=== PATIENT | female | born 1950 | race Asian ===

== ENCOUNTER 2020-02-12 00:02 | Inpatient (IN) | payer OTHER ==
[~2020-02-12] VITALS: Ht 154.9 cm; Wt 68.7 kg
[2020-02-12] VITALS (11 sets, daily range): BP systolic 80–113; BP diastolic 50–74
[2020-02-12] MEDS ORDERED: SODIUM CHLORIDE FLUSH 10ML SYR IVF ONE (00:30)
[2020-02-12] MEDS ORDERED: SODIUM CHLORIDE 0.9% 1,000ML IV ONE (00:30)
--- NOTE | 2020-02-12 00:39 | NUR ---
URINE SENT TO LAB
[2020-02-12 00:56] LABS: MICROSCOPIC AUTO
[2020-02-12] MEDS ORDERED: SODIUM CHLORIDE 0.9% 1,000ML IVBOLUS ONE (01:30)
[2020-02-12] MEDS ORDERED: CEFTRIAXONE PMX 1GM/50ML 50 ML IV ONE (01:30)
--- NOTE | 2020-02-12 01:36 | NUR ---
PT IS HERE FOR LEFT FLANK PAIN AND VOMITING SINCE YESTERDAY. HR ELEVATED. OTHER VSS. PIV PLACED AND FLUIDS RUNNING. LAB AT BEDSIDE. CALL LIGHT IN REACH
[2020-02-12 01:49] LABS: BASOPHILS # (AUTO) 0.01 x10^3/uL (0-0.1); BASOPHILS % (AUTO) 0 % (0-1); EOSINOPHILS # (AUTO) 0.05 x10^3/uL (0-0.4); EOSINOPHILS % (AUTO) 1 % (1-7); LYMPHOCYTES # (AUTO) 0.64 x10^3/uL (1-3.4); LYMPHOCYTES % (AUTO) 8 % (22-44); MD NO; MEAN CORPUSCULAR VOLUME 90.9 fL (80-100); MEAN PLATELET VOLUME 8.4 fL (7.4-10.4); MONOCYTES # (AUTO) 0.02 x10^3/uL (0.2-0.8); MONOCYTES % (AUTO) 0 % (2-9); NEUTROPHILS # (AUTO) 7.29 x10^3/uL (1.8-6.8); NEUTROPHILS % (AUTO) 91 % (42-75); PLATELET COUNT 117 x10^3/uL (130-400); RED BLOOD COUNT 4.65 x10^6/uL (3.82-5.3); RED CELL DISTRIBUTION WIDTH 13.1 % (9.6-15.2)
[2020-02-12] MEDS ORDERED: CEFTRIAXONE PMX 1GM/50ML 50 ML ONE (01:55)
[2020-02-12 02:02] LABS: ALANINE AMINOTRANSFERASE 48 U/L (12-78); ALBUMIN 3.1 g/dL (3.4-5.0); ANION GAP 10 mmol/L (5-15); CALCIUM 8.1 mg/dL (8.5-10.1); CHLORIDE 114 mmol/L (98-107); CREATININE 2.64 mg/dL (0.55-1.02)
[2020-02-12 02:07] LABS: ALKALINE PHOSPHATASE 110 U/L (45-117); BILIRUBIN,TOTAL 1.1 mg/dL (0.2-1.0); TOTAL PROTEIN 6.7 g/dL (6.4-8.2)
[2020-02-12 02:11] LABS: TROPONIN I 0.147 ng/mL (0.000-0.045)
--- NOTE | 2020-02-12 02:15 | NUR ---
ABX RUNNING AND 2ND LITER OF FLUIDS WELL. PT HAS ELEVATED TROP. NOTIFIED.
--- NOTE | 2020-02-12 02:26 | NUR ---
2 L FLUIDS FINISHED. PT TO BE ADMITTED. VSS. HR STILL ELEVATED.
[2020-02-12] MEDS ORDERED: SODIUM CHLORIDE 0.9% 1,000 ML IV ONE (02:37)
[2020-02-12] MEDS ORDERED: ONDANSETRON 2MG/ML, 2ML IVPush PRN ×3 (03:00→12:00)
[2020-02-12] MEDS ORDERED: MORPHINE SULFATE 4 MG/ML, 1ML IVPush PRN (03:00)
--- NOTE | 2020-02-12 03:09 | NUR ---
PT AMBULATED TO BATHROOM WITH A STEAD GAIT. PT BACK IN ROOM IN BED WITH NO OTE NEEDS. CALL LIGHT IN REACH
[2020-02-12] MEDS ORDERED: ATEN50TA41 PO (04:02)
[2020-02-12] MEDS ORDERED: ATOR20TA86 PO (04:02)
[2020-02-12] MEDS ORDERED: ONDANSETRON ODT 4 MG PO PRN (05:30)
[2020-02-12] MEDS ORDERED: morphine SULFATE 10 MG/ML, 1ML IVPush PRN (05:30)
[2020-02-12] MEDS ORDERED: NITROGLYCERIN 0.4 MG BOTTLE (25 TABS) SL PRN (05:30)
[2020-02-12] MEDS ORDERED: POLYETHYLENE GLYCOL 17 GM PACKET PO PRN (05:30)
[2020-02-12] MEDS ORDERED: LACTATED RINGERS 1,000 ML IV SCH (05:30)
[2020-02-12] MEDS ORDERED: PROMETHAZINE 25 MG/ML, 1ML IM PRN (05:30)
[2020-02-12] MEDS ORDERED: OXYcodone IR 5MG TABLET PO PRN (05:30)
[2020-02-12] MEDS: ACETAMINOPHEN 325 MG TABLET PO SCH ×3 (05:53→16:50)
[2020-02-12] MEDS ORDERED: POTASSIUM CHLORIDE 20 MEQ TAB.ER.PRT PO ONE (06:00)
[2020-02-12 06:20] LABS: TROPONIN I 0.143 ng/mL (0.000-0.045)
[2020-02-12] MEDS ORDERED: ATENOLOL 50 MG TABLET PO SCH (06:30)
[2020-02-12] MEDS ORDERED: LOSA25TA12 PO (06:31)
[2020-02-12] MEDS ORDERED: LACTATED RINGERS 500 ML IVBOLUS ONE ×2 (07:00→10:00)
[2020-02-12] MEDS: SENNA/DOCUSATE TABLET PO SCH (08:17)
[2020-02-12] MEDS ORDERED: LOSARTAN 25MG TABLET PO SCH (09:00)
[2020-02-12] MEDS ORDERED: FENTANYL PF 100 MCG/2ML ONE (11:30)
[2020-02-12] MEDS ORDERED: PHENYLEPHRINE 10 MG/ML ONE (11:32)
[2020-02-12 11:39] LABS: TROPONIN I 0.177 ng/mL (0.000-0.045)
[2020-02-12] MEDS ORDERED: MEPERIDINE/PF 25MG/0.5ML IVPush PRN (12:00)
[2020-02-12] MEDS ORDERED: OXYcodone 5 MG/5 ML ORAL.SOL UDC PO PRN (12:00)
[2020-02-12] MEDS ORDERED: FENTANYL PF 100 MCG/2ML IV PRN (12:00)
[2020-02-12] MEDS ORDERED: CEFAZOLIN 1,000 MG ONE (12:06)
[2020-02-12] MEDS ORDERED: ONDANSETRON 2MG/ML, 2ML ONE (12:06)
[2020-02-12] MEDS ORDERED: PROPOFOL 10 MG/ML, 20ML ONE (12:06)
[2020-02-12] MEDS ORDERED: DEXAMETHASONE 4 MG/ML, 1ML ONE (12:06)
[2020-02-12] MEDS ORDERED: OMNIPAQUE 350 MG/ML, 50 ML BOTTLE ONE (12:16)
[2020-02-12] MEDS ORDERED: CEFEPIME 1 GM in DEXTROSE 5% 100 ML IV SCH (14:00)
[2020-02-12] MEDS: LACTATED RINGERS 1,000 ML IV SCH (16:51)
[2020-02-12 18:42] LABS: TROPONIN I 0.184 ng/mL (0.000-0.045)
[2020-02-12] MEDS: ATORVASTATIN 20 MG TABLET PO SCH (20:10)
[2020-02-13] MEDS: ACETAMINOPHEN 325 MG TABLET PO SCH ×5 (00:02→23:43)
[2020-02-13 00:50] VITALS: BP 101/65
[2020-02-13 01:19] LABS: MEAN CORPUSCULAR HEMOGLOBIN 30.3 pg (27.0-34.8); MEAN CORPUSCULAR HGB CONC 33.1 g/dL (32.4-35.8); MEAN CORPUSCULAR VOLUME 91.3 fL (80-100); RED BLOOD COUNT 3.62 x10^6/uL (3.82-5.3); RED CELL DISTRIBUTION WIDTH 13.8 % (9.6-15.2)
[2020-02-13 01:25] LABS: ALANINE AMINOTRANSFERASE 60 U/L (12-78); ALBUMIN 2.5 g/dL (3.4-5.0); ANION GAP 10 mmol/L (5-15); CALCIUM 7.7 mg/dL (8.5-10.1); CHLORIDE 116 mmol/L (98-107); CREATININE 2.16 mg/dL (0.55-1.02)
[2020-02-13 01:27] LABS: ALKALINE PHOSPHATASE 50 U/L (45-117); BILIRUBIN,TOTAL 1.5 mg/dL (0.2-1.0); TOTAL PROTEIN 5.9 g/dL (6.4-8.2)
[2020-02-13 01:33] LABS: MEAN PLATELET VOLUME 9.5 fL (7.4-10.4); PLATELET COUNT 94 x10^3/uL (130-400)
[2020-02-13 01:34] LABS: MD YES
[2020-02-13 01:38] LABS: TROPONIN I 0.238 ng/mL (0.000-0.045)
[2020-02-13 01:40] LABS: BAND#(MANUAL) 7.42 x10^3/uL; BANDS%(MANUAL) 29 % (0-7); EOS#(MANUAL) 0.51 x10^3/uL (0.0-0.4); EOS% (MANUAL) 2 % (1-7); LYMPH#(MANUAL) 3.33 x10^3/uL (1-3.4); LYMPHS% (MANUAL) 13 % (22-44); MONOS#(MANUAL) 0.51 x10^3/uL (0.3-2.7); MONOS% (MANUAL) 2 % (2-9); SEG#(MANUAL) 13.82 x10^3/uL (1.8-6.8); SEGS% (MANUAL) 54 % (42-75)
[2020-02-13 01:42] LABS: <PLATELET ESTIMATE> DECREASED; <RBC MORPHOLOGY> NORMAL; LARGE PLATELETS 1+
[2020-02-13 01:49] VITALS: BP_SYST 134; BP_DIAS 8; BP_DIAS 80
[2020-02-13] MEDS ORDERED: CEFTRIAXONE PMX 1GM/50ML 50 ML IV SCH (02:00)
[2020-02-13] MEDS: LACTATED RINGERS 1,000 ML IV SCH ×2 (02:24→10:43)
[2020-02-13] MEDS: CEFEPIME 1 GM in DEXTROSE 5% 50 ML IV SCH ×2 (02:30→14:32)
[2020-02-13 04:05] LABS: MICROSCOPIC INDICATED
[2020-02-13 07:18] VITALS: BP 125/69
[2020-02-13 08:22] LABS: TROPONIN I 0.361 ng/mL (0.000-0.045)
[2020-02-13] MEDS: SENNA/DOCUSATE TABLET PO SCH (08:35)
[2020-02-13 13:50] VITALS: BP 116/73
[2020-02-13] MEDS: ATORVASTATIN 20 MG TABLET PO SCH (20:13)
[2020-02-13 20:34] VITALS: BP 160/89
[2020-02-13 21:13] VITALS: BP 162/78
[2020-02-14] VITALS (8 sets, daily range): BP systolic 146–185; BP diastolic 84–107
[2020-02-14] MEDS: ACETAMINOPHEN 325 MG TABLET PO SCH ×3 (05:18→16:12)
[2020-02-14] MEDS: LACTATED RINGERS 1,000 ML IV SCH (05:20)
[2020-02-14 05:37] LABS: ALBUMIN 2.5 g/dL (3.4-5.0); ANION GAP 7 mmol/L (5-15); CALCIUM 8.8 mg/dL (8.5-10.1); CHLORIDE 116 mmol/L (98-107)
[2020-02-14 05:40] LABS: MEAN CORPUSCULAR HGB CONC 32.7 g/dL (32.4-35.8); MEAN CORPUSCULAR VOLUME 91.9 fL (80-100); MEAN PLATELET VOLUME 10.4 fL (7.4-10.4); PLATELET COUNT 120 x10^3/uL (130-400); RED BLOOD COUNT 3.95 x10^6/uL (3.82-5.3); RED CELL DISTRIBUTION WIDTH 13.7 % (9.6-15.2)
[2020-02-14 05:41] LABS: ALANINE AMINOTRANSFERASE 53 U/L (12-78); ALKALINE PHOSPHATASE 93 U/L (45-117); BILIRUBIN,TOTAL 0.9 mg/dL (0.2-1.0); CREATININE 1.66 mg/dL (0.55-1.02); TOTAL PROTEIN 6.2 g/dL (6.4-8.2)
[2020-02-14 05:58] LABS: MD YES
[2020-02-14 06:00] LABS: BANDS%(MANUAL) 11 % (0-7); EOS#(MANUAL) 0.49 x10^3/uL (0.0-0.4); EOS% (MANUAL) 2 % (1-7); LYMPH#(MANUAL) 2.94 x10^3/uL (1-3.4); LYMPHS% (MANUAL) 12 % (22-44); MONOS#(MANUAL) 0.49 x10^3/uL (0.3-2.7); MONOS% (MANUAL) 2 % (2-9); SEG#(MANUAL) 17.89 x10^3/uL (1.8-6.8); SEGS% (MANUAL) 73 % (42-75)
[2020-02-14 06:01] LABS: <RBC MORPHOLOGY> NORMAL
[2020-02-14 06:02] LABS: <PLATELET ESTIMATE> DECREASED; LARGE PLATELETS 1+
[2020-02-14] MEDS: SENNA/DOCUSATE TABLET PO SCH (07:25)
[2020-02-14] MEDS: LABETALOL 5MG/ML, 20ML IVPush PRN ×2 (08:20→15:40)
[2020-02-14] MEDS ORDERED: REGADENOSON 0.4 MG/5 ML SYRINGE ONE (11:53)
[2020-02-14] MEDS ORDERED: CEFEPIME 1 GM in DEXTROSE 5% 50 ML IV SCH (14:00)
[2020-02-14] MEDS ORDERED: ATENOLOL 25 MG TABLET PO SCH (16:00)
[2020-02-14] MEDS ORDERED: ACETAMINOPHEN 325 MG TABLET PO PRN (18:00)
[2020-02-14] MEDS: ATORVASTATIN 20 MG TABLET PO SCH (20:20)
[2020-02-15 02:10] VITALS: BP 164/102
[2020-02-15] MEDS ORDERED: MAGNESIUM SULFATE/D5W 100 ML IV ONE (03:00)
[2020-02-15 06:17] LABS: MEAN CORPUSCULAR HGB CONC 32.9 g/dL (32.4-35.8); MEAN CORPUSCULAR VOLUME 91.3 fL (80-100); MEAN PLATELET VOLUME 9.9 fL (7.4-10.4); PLATELET COUNT 141 x10^3/uL (130-400); RED BLOOD COUNT 3.96 x10^6/uL (3.82-5.3); RED CELL DISTRIBUTION WIDTH 13.9 % (9.6-15.2)
[2020-02-15 06:18] LABS: ALBUMIN 2.6 g/dL (3.4-5.0); ANION GAP 8 mmol/L (5-15); CALCIUM 8.7 mg/dL (8.5-10.1); CHLORIDE 110 mmol/L (98-107)
[2020-02-15 06:21] LABS: ALANINE AMINOTRANSFERASE 45 U/L (12-78); ALKALINE PHOSPHATASE 98 U/L (45-117); BILIRUBIN,TOTAL 0.9 mg/dL (0.2-1.0); CREATININE 1.53 mg/dL (0.55-1.02); TOTAL PROTEIN 6.4 g/dL (6.4-8.2)
[2020-02-15] MEDS ORDERED: POTASSIUM CHLORIDE 20 MEQ TAB.ER.PRT PO ONE ×2 (06:30→10:30)
[2020-02-15] MEDS ORDERED: SENNA/DOCUSATE TABLET PO PRN (06:30)
[2020-02-15 06:49] VITALS: BP 178/99
[2020-02-15 06:54] LABS: MD YES
[2020-02-15 06:56] LABS: <PLATELET ESTIMATE> ADEQUATE; <PLT MORPHOLOGY> NORMAL PLT MORPH; <RBC MORPHOLOGY> NORMAL; EOS#(MANUAL) 0.88 x10^3/uL (0.0-0.4); EOS% (MANUAL) 5 % (1-7); LYMPH#(MANUAL) 3.15 x10^3/uL (1-3.4); LYMPHS% (MANUAL) 18 % (22-44); METAMYELOCYTES# (MANUAL) 0.18 x10^3/uL (0-0); METAMYELOCYTES% (MANUAL) 1 % (0-1); MONOS% (MANUAL) 4 % (2-9); NRBC % (MANUAL) 1 % (0-1); SEGS% (MANUAL) 72 % (42-75)
[2020-02-15] MEDS: LABETALOL 5MG/ML, 20ML IVPush PRN (07:18)
[2020-02-15] MEDS ORDERED: ATENOLOL 50 MG TABLET PO SCH (09:00)
[2020-02-15] MEDS ORDERED: CEFEPIME 1 GM in DEXTROSE 5% 50 ML IV SCH (12:00)
[2020-02-15] MEDS ORDERED: ATEN50TA41 PO (12:11)
[2020-02-15] MEDS ORDERED: LOSA25TA12 PO (12:11)
[2020-02-15] MEDS ORDERED: ATOR20TA86 PO (12:11)
[2020-02-15 14:00] VITALS: BP 173/106
[2020-02-15 15:00] VITALS: BP 173/90
== END 2020-02-15 16:32 | disposition home or self-care (01) | DRG 853 ==
LOC: ED 00:32 → EDIP 02:37 → 4WST 03:41
PROVIDERS: ADMIT Family Medicine; ATTEND Family Medicine
PROC: 0TC78ZZ Extirpation of Matter from Left Ureter, Via Natural or Artificial Opening Endoscopic (ICD-10-PCS; 2020-02-12)
PROC: BT1F1ZZ Fluoroscopy of Left Kidney, Ureter and Bladder using Low Osmolar Contrast (ICD-10-PCS; 2020-02-12)
PROC: 0T778DZ Dilation of Left Ureter with Intraluminal Device, Via Natural or Artificial Opening Endoscopic (ICD-10-PCS; principal; 2020-02-12 11:00)
DX: A41.51 Sepsis due to Escherichia coli [E. coli] (principal); R65.21 Severe sepsis with septic shock; I47.2 Ventricular tachycardia; N13.6 Pyonephrosis; N17.9 Acute kidney failure, unspecified; E78.5 Hyperlipidemia, unspecified; E83.42 Hypomagnesemia; E87.6 Hypokalemia; E88.09 Other disorders of plasma-protein metabolism, not elsewhere classified; I12.9 Hypertensive chronic kidney disease with stage 1 through stage 4 chronic kidney disease, or unspecified chronic kidney disease; N18.9 Chronic kidney disease, unspecified; Z79.899 Other long term (current) drug therapy; Z87.440 Personal history of urinary (tract) infections; Z87.442 Personal history of urinary calculi; Z20.828 Contact with and (suspected) exposure to other viral communicable diseases
CPT/HCPCS: 36415; 74176; 74420; 78452; 80053; 81001; 82360; 83605; 83690; 83735; 84145; 84484; 85025; 87040; 87077; 87086; 87186; 87635; 88300; 93005; 93017; 93306; 96361; 96374; G0378; J0690; J0692; J0696; J1100; J2405; J2704; J2785; J3010; J7120; Q9967; A9502; C1769; C2617; J2370; J7030